=== PATIENT | female | born 1970 | race Caucasian/White ===

== ENCOUNTER 2020-04-15 06:06 | Day surgery (SDC) | payer BC, SELFPAY ==
[2020-04-13 12:40] VITALS: BMI 36.8
--- NOTE | 2020-04-14 09:32 | HP_ITS ---
DATE OF SERVICE: 04/15/2020 PREOPERATIVE DIAGNOSIS: Plantar fasciitis, right foot. PLANNED PROCEDURE: Right foot [place] plantar fasciotomy with Interfyl injection, right foot. PAST MEDICAL HISTORY: Anxiety, hip, back, knee pain, broken bones, high cholesterol, depression, sleep apnea, and fatigue. CURRENT MEDICATIONS: Celexa, Klonopin, vitamin D, calcium, iron, Loestrin, multivitamin, and Neurontin. PAST SURGICAL HISTORY: . FAMILY HISTORY: Noncontributory. SOCIAL HISTORY: The patient is a former smoker. Current nonsmoker. She denies any illicit drug use. Relates occasional alcohol use and she is currently working as a financial sales representative for [employer]. ALLERGIES: NO KNOWN DRUG ALLERGIES. HOSPITALIZATIONS: Denies. REVIEW OF SYSTEMS: Within normal limits. HISTORY OF PRESENT ILLNESS: This is a 50-year-old female presents with continued pain in her right foot located at the inside rear foot and proximal aspect of the right heel that has been going on since about September. It has been gradually getting progressively worse with no relief. The patient has tried multiple conservative treatments including rest, change in shoes, change in gym schedule, diclofenac, cortisone injections, bracing, ice massage, and a Medrol Dosepak, physical therapy taping, and an MRI to confirm patient's diagnosis. PHYSICAL EXAMINATION: GENERAL: Reveals a pleasant, alert, well-nourished, well-developed, well-hydrated individual, oriented to person, place, and time. NEUROLOGICAL EXAM: Reveals intact sensorium. Pain sensation is normal. Vibratory sensation is intact. Pinprick sensation is normal. The patient denies anesthesias, burning, paresthesias or tingling. Tarsal tunnel is positive on the right foot. Achilles tendon reflexes are 2/4 bilaterally. Vascular exam, DP and PT pulses are 3/4 bilaterally. Capillary refill time is immediate to all digits. Skin temperature is warm to cool proximal to distal. Hair growth, texture, elasticity are normal bilaterally. Pigmentation is normal bilaterally and there is no edema. DERMATOLOGICAL: Reveals normal texture, elasticity, and turgor. Heel pain on inspection reveals right foot pain on palpation to the plantar fascia, medial and central bands intrinsic musculature, infracalcaneal bursa and medial calcaneal tubercle. ORTHOPEDIC EXAM: Muscle strength is 5/5 in a symmetrical fashion. There is pain on palpation and fusiform swelling to the tibialis posterior tendon, right foot, and pain with range of motion. PLAN: Surgery was discussed in detail with the patient including risks of surgery, not having surgery, potential surgical complications, the anesthesia, and the usual postoperative course. No guarantees were given. We discussed with the patient complications such as but not limited to delayed or nonhealing, excessive scarring, excessive swelling for the procedure, infection, nonunion, numbness, chronic pain, recurrence, failure of the procedure, and loss of toe, foot, life, or limb. Alternatives to procedure were also discussed including conservative care. The patient would like to proceed with surgical treatment as well as the patient will obtain preoperative labs as well as medical clearance for surgery and anesthesia. The patient is made aware to stop any and all blood thinners including fish oil and [id number] aspirin in 1 week prior to surgery. The patient is made aware of the fact that driving may not be allowed during a portion of the postoperative period. Not to use any smoking, tobacco products. Narcotic pain medication was deferred. Recommend Tylenol Extra Strength 2 tablets as needed for pain. The patient was dispensed a walking cast boot. She can be partial weightbearing to the right foot with walking cast boot and crutches. The patient is to limit her activity and follow up with me for all postoperative followup care. Leslie Crandall DPM LP/ROHIT / [id number]
--- NOTE | 2020-04-14 09:50 | P.CONAN_ITS ---
Documented by User: Regina Cohen 04/14/20 09:55 HPI - Anesthesia Eval Consult details Narrative: 50yo F for Plantar Fasciotomy *Central Sleep Apnea* PCP cleared [facility] Past Medical History Medical History Asthma Depression Hx of anxiety disorder Hx of degenerative disc disease Sleep apnea Surgical History Surgical History H/O colonoscopy History of esophagogastroduodenoscopy (EGD) Social History Social History Smoking Status: Former smoker Smoked in Last 30 Days: No Smoking Quit Date: age 39 Advance Directives Information Provided: No Meds Allergies Allergy/AdvReac Type Severity Reaction Status Date / Time clomiphene [From Clomid] Allergy Intermediate Hives Verified 04/13/20 12:50 Home Medications Medication Instructions Recorded Confirmed Type citalopram [Celexa] 60 mg PO DAILY 04/13/20 04/13/20 History clonazepam 1 mg PO BEDTIME 04/13/20 04/13/20 History iron, carbonyl [Iron Chews] 15 mg PO DAILY 04/13/20 04/13/20 History multivitamin 1 tab PO DAILY 04/13/20 04/13/20 History norethindrone-e.estradiol-iron 1 tab PO DAILY 04/13/20 04/13/20 History [Loestrin 24 Fe] Exam Exam Date and Time: April 14, 2020 0950 Height,Weight and Vital Signs: Height 5 ft 4 in Weight 97.522 kg Narrative Narrative: ECHO 2017: LV size is nml, mild discrete upper septal thickening, LV sys function is nml, LVEF 55-60%, No RWMA Assessment and Plan Assessment Anesthesia Assessment: Chart Reviewed Documented by User: Rosalinda Melvin 04/15/20 07:28 [facility] Past Medical History Medical History Asthma Depression Hx of anxiety disorder Hx of degenerative disc disease Sleep apnea Surgical History Surgical History H/O colonoscopy History of esophagogastroduodenoscopy (EGD) Social History Social History Smoking Status: Former smoker Smoked in Last 30 Days: No Smoking Quit Date: age 39 Advance Directives Information Provided: No Meds Allergies Allergy/AdvReac Type Severity Reaction Status Date / Time clomiphene [From Clomid] Allergy Intermediate Hives Verified 04/13/20 12:50 Home Medications Medication Instructions Recorded Confirmed Type citalopram [Celexa] 60 mg PO DAILY 04/13/20 04/13/20 History clonazepam 1 mg PO BEDTIME 04/13/20 04/13/20 History iron, carbonyl [Iron Chews] 15 mg PO DAILY 04/13/20 04/13/20 History multivitamin 1 tab PO DAILY 04/13/20 04/13/20 History norethindrone-e.estradiol-iron 1 tab PO DAILY 04/13/20 04/13/20 History [Loestrin 24 Fe] Exam Airway Mallampati Class: II TM Dist: >3cm Neck ROM: Full Assessment and Plan Assessment Anesthesia Assessment: Anesthesia Plan Discussed and Chart Reviewed Final Anesthetic Review NPO: Yes ASA Class: III Final Preanesthetic Review: No Changes in Pt Med Stat, Meds/Allgs Chart Reviewed , Consent Obtained/Reviewed and Anes Risks/Benef Reviewed Patient Risk: Intermediate Procedure Risk: Low Assessment/Block/Sedation in SS: Assess/Block/Sedation-SS Anesthetic Plan Anesthetic Plan: MAC: Disposition: Standard PACU
[2020-04-15 06:54] VITALS: BP 103/62; PULSE 74; RESP 16; TEMP 36.7; O2SAT 95
[2020-04-15] MEDS: Lactated Ringers 1,000 ML 100 ML IVCONT (07:19)
[2020-04-15] MEDS: ceFAZolin Sodium/Dextrose,Iso 2 GM/50 ML PIGGYBACK IV (07:20)
--- NOTE | 2020-04-15 07:28 | MHC.SHP ---
Pre-Procedural Eval Section A The patient is an INPATIENT: No Changes since office visit: No Cold of Flu in the past 2 weeks, No New Medical Problems, No Changes in Medication and No Patient answered all questions The History & Physical has been completed within 30 days and I have reviewed it.: Yes Section B Chief Complaint: plantar fasciotomy Allergies: Allergies Allergy/AdvReac Type Severity Reaction Status Date / Time clomiphene [From Clomid] Allergy Intermediate Hives Verified 04/13/20 12:50 Plan Patient has been examined and remains a candidate for the planned procedure
--- NOTE | 2020-04-15 08:00 | P.BOP_ITS ---
Brief Operative Note Date of procedure: 04/15/20 Pre-op diagnosis: Plantar fasciitis and posterior tibial tendonitis right foot Post-op diagnosis: same Procedure: [place] plantar fasciotomy with Interfyl injection to Posterior tibial and plantar fascia right Implants: Interfyl Surgeon: Leslie Crandall Anesthesia: MAC and local Estimated blood loss (mL): 1 Tourniquet time (min): 8 Pathology: none sent Condition: stable Disposition: PACU
[2020-04-15 08:05] VITALS: BP 80/35; PULSE 66; RESP 16; TEMP 36.6; O2SAT 97
[2020-04-15 08:20] VITALS: BP 100/58; PULSE 60; RESP 16; TEMP 36.1; O2SAT 97
--- NOTE | 2020-04-15 08:29 | HO.POSTANES ---
Post Anesthesia Evaluation Post Anesthesia Evaluation Vital Signs: Vital Signs Temp Pulse Resp BP Pulse Ox 04/15/20 08:05 97.9 F 66 16 80/35 L 97 04/15/20 06:54 98.0 F 74 16 103/62 95 Anesthesia: Monitored Mental Status: Awake Pain Control: Satisfactory Nausea/Vomiting: None Hydration: Adequate Anesthesia-Related Issues: No Anes. Related Issues
[2020-04-15 08:34] VITALS: BP 114/65; PULSE 60; RESP 16; TEMP 36.1; O2SAT 97
[2020-04-15] MEDS: Acetaminophen 325 MG TABLET 650 MG PO (09:27)
[2020-04-15] MEDS: oxyCODONE HCl Immed Release 5 MG TABLET PO (09:28)
--- NOTE | 2020-04-15 17:45 | OP_ITS ---
SURGEON: Leslie Crandall DPM PREOPERATIVE DIAGNOSES: 1. Plantar fasciitis, right foot. 2. Posterior tibial tendinitis, right foot. POSTOPERATIVE DIAGNOSES: 1. Plantar fasciitis, right foot. 2. Posterior tibial tendinitis, right foot. PROCEDURE PERFORMED: Right foot [place] plantar fasciotomy with injection of Interfyl to right posterior tibial tendon and plantar fascia. ESTIMATED BLOOD LOSS: Less than 1 mL. COMPLICATIONS: None. ANESTHESIA: Monitored anesthetic care with local consisting preoperatively of 12 mL of 0.5% Marcaine plain and 2% lidocaine plain and postoperatively of 6 mL of 0.5% Marcaine plain. ASSISTANTS: None SPECIMENS: None HEMOSTASIS: Pneumatic ankle tourniquet set at 250 mmHg for 8 minutes. INDICATIONS FOR SURGERY: The patient has had continuous pain to the plantar fascia of the right foot as well as the posterior tibial tendon, confirmed with MRI. The patient states the pain has been getting progressively worse. She has failed conservative treatments and is ready for surgical intervention. The above-mentioned surgery was discussed in detail with the patient including risks, benefits, and possible complications. No guarantees were given. Written and oral informed consent were obtained. PROCEDURE IN DETAIL: The patient was brought into the operating room, placed on the table in the usual supine position. Following IV sedation, the above-mentioned local anesthetic was injected about the right foot in a regional field block fashion. The right foot was then scrubbed, prepped, and draped in a sterile manner. Attention was directed to the plantar aspect of the right heel where preoperatively the most painful areas of the plantar fascia and posterior tibial tendon were marked. A small grid was placed about half a centimeter apart on the plantar aspect of the right heel and arch overlying the medial and central bands of the plantar fascia. The grid had holes poked with a 0.62 K-wire and the [place] wand was introduced perpendicular to the plantar fascia and the plantar fascia tissue was ablated. Once complete, the foot was dressed with Steri-Strips. Next, the Interfyl Was reconstituted with 6 mL of 0.5% Marcaine plain and was administered to the plantar fascia as well as the posterior tibial tendon. The right foot was then dressed with Betadine-soaked gauze, 4 x 4, fluffs, Kerlix, cast padding, an ABD pad, and an Keron bandage. The patient tolerated the procedure and anesthesia well. The patient was transferred to recovery room with vital signs stable and vascular status at preoperative level. Following a period of postoperative recovery, the patient will be discharged home with written and oral postoperative instructions. The patient is to be partial weightbearing in a walking cast boot and crutches to the right foot. She is to avoid any anti-inflammatories such as NSAIDs and icing. She is to elevate her right foot and take Tylenol as needed for any pain or discomfort. Leslie Crandall DPM LP/ROHIT / [id number] [id number]
== END 2020-04-15 08:50 | disposition home or self-care (01) ==
PROVIDERS: PCP Internal Medicine; Visit Provider Podiatrist
PROC: (CPT 29893; principal; 2020-04-15 07:30)
DX: M72.2 Plantar fascial fibromatosis (principal); M76.821 Posterior tibial tendinitis, right leg; G47.30 Sleep apnea, unspecified; J45.909 Unspecified asthma, uncomplicated; F32.9 Major depressive disorder, single episode, unspecified; Z87.891 Personal history of nicotine dependence; Z88.8 Allergy status to other drugs, medicaments and biological substances; Z79.899 Other long term (current) drug therapy
CPT/HCPCS: 28008; 20550; J0690; J1100; J2405; J3010; Q4171

== ENCOUNTER 2023-11-23 10:49 | Outpatient (AMB) | payer OTHER, SELFPAY ==
[2023-11-23 11:46] VITALS: BP 130/70; PULSE 76; TEMP 36.8; O2SAT 98
--- NOTE | 2023-11-23 11:46 | AM.OFFWIN_ITS ---
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, swelling Intake Note: pt is here for itchiness and swelling in gential area and would like to be examined Patient Tobacco Use Status: Never used Tobacco Allergies clomiphene [From Clomid] Allergy (Intermediate, Verified 11/23/23 12:09) Hives Medication List - Last Reconciled 11/23/23 by Reta Gay CNP citalopram (Celexa) 60 mg PO DAILY clonazepam 1 mg PO BEDTIME iron, carbonyl (Iron Chews) 15 mg PO DAILY multivitamin 1 tab PO DAILY norethindrone-e.estradiol-iron 1 mg-20 mcg (24)/75 mg (4) 1 tab PO DAILY Do you need a note to return to daycare/school/sports/work: No HPI HPI Comments History of Present Illness Details 53-year-old female [facility] for complaint vaginal itching and swelling x 1 month that has gotten worse over the last week progressing to bilateral groin areas. She denies having new sex partner, painful intercourse, menopause, or changes in laundry detergent, soaps, or vaginal deodorants. She also denies fever, chills, CP, SOB, abdominal pain, nausea, vomiting, hematuria, dysuria, urinary frequency or changes in bowels. She does endorse increased stress over the last 1-2 months secondary to a new job, and she is also on prescribed control, norethindrone-e.estradiol-iron [facility] Medical History Hx of degenerative disc disease Hx of anxiety disorder Depression Sleep apnea Asthma Surgical History History of esophagogastroduodenoscopy (EGD) H/O colonoscopy Social History Patient Tobacco Use Status: Never used Tobacco Review of Systems Const All systems reviewed & are unremarkable except as noted in HPI and below Physical Exam Vital Signs: Last Vital Signs Temp 98.3 F 11/23/23 11:46 Pulse 76 11/23/23 11:46 BP 130/70 11/23/23 11:46 Pulse Ox 98 11/23/23 11:46 Const Other: General: awake, alert, oriented. Answers questions appropriately. Fully engaged in examination. Skin: warm, dry, intact HEENT: TMs intact bilaterally, without erythema or exudate. Posterior pharynx without erythema or exudate. Sclera without icterus or injection. Cardiac: External chest normal in appearance. Respiratory: No cough, audible wheezing or stridor. Abdomen: without gross distension. Neurological: Oriented to person, place, time and situation. Thought process intact. Psychiatric: Appropriate mood and affect. Good judgment and insight. General: Yes no CVA tenderness External Female Exam: erythema (bilateral groin, bilateral labia with associated edema ) Speculum Exam - Vagina: abnormal vaginal discharge white (thick, creamy); not malodorous, erythematous (no fissures or splits in skin noted), no lacerations, no lesions, No vaginal bleeding, swelling and nontender Speculum Exam - Cervix: normal appearance of the cervix OB/external & speculum: No vaginal bleeding Back/Spine/Pelvis Back: no CVA tenderness Assessment & Plan Assessment & Plan (1) Vaginitis and vulvovaginitis: Code(s): N76.0 - Acute vaginitis Plan: 53-year-old female seen in office for complaint of 1 month vaginal itching and swelling that has progressively gotten worse of the last 7 days. Physical exam reveals erythema and swelling of the groin folds, labia, and vulva with no splits or fissures, small amount of thick white non odorous discharge. Instructed to keep area clean and dry. Fluconazole 150 mg po Q3days x 3 doses. Clotrimazole 2% ointment to groin and outer labia bid prn Miconazole powder to groin folds to keep dry bid Miconazole-7 vaginal suppository qhs x 7 days. Return to office for worsening or unrelieved symptoms, and or f/u with childcare worker provider or PCP. Medications: New miconazole nitrate 2% (Antifungal (miconazole)) 1 appl topical BID PRN 85 grams 0RF itching 5 days N76.0 - Acute vaginitis miconazole nitrate (Miconazole-7) 100 mg vaginal BEDTIME 7 ea 0RF 7 days N76.0 - Acute vaginitis fluconazole 150 mg PO Q3D 3 tabs 0RF 3 doses N76.0 - Acute vaginitis clotrimazole 2% (Clotrimazole 3 Day) 1 appful vaginal BEDTIME 21 grams 0RF 3 days N76.0 - Acute vaginitis Coding Level of Care Code Est Pt Level 4 (83842) Diagnoses Vaginitis and vulvovaginitis N76.0
== END 2023-11-23 12:47 | disposition home or self-care (01) ==
PROVIDERS: PCP Internal Medicine; Visit Provider Nurse Practitioner Acute Care
DX: N76.0 Acute vaginitis (principal)
CPT/HCPCS: 99051; 99214